=== PATIENT | male | born 1955 | race African-American/Black ===

== ENCOUNTER → 2022-08-31 | Outpatient (CLI) | payer OTHER ==
--- NOTE | 2022-08-31 11:35 | XR ---
EXAMINATION TYPE: XR chest 2V DATE OF EXAM: 08/31/2022 COMPARISON: NONE HISTORY: Shortness of breath TECHNIQUE: Frontal and lateral views of the chest are obtained. FINDINGS: Scattered senescent parenchymal changes noted. Hyperinflation compatible with COPD. No evidence for infiltrate. No evidence for atelectasis. Heart size is stable. Mediastinal structures are stable and grossly unremarkable. No evidence for hilar prominence. Degenerative changes dorsal spine. IMPRESSION: 1. No evidence for acute pulmonary disease.
== END | disposition home or self-care (01) ==
LOC: RADXRMAIN 10:46
PROVIDERS: ATTEND Internal Medicine
DX: R06.02 Shortness of breath (principal)
CPT/HCPCS: 71046

== ENCOUNTER → 2023-06-12 | Outpatient (CLI) | payer MEDICARE ==
--- NOTE | 2023-06-12 15:58 | XR ---
EXAMINATION TYPE: XR knee complete LT DATE OF EXAM: 06/12/2023 3:03 PM CLINICAL INDICATION:Male, 67 years old with history of M25.562 PAIN IN LEFT KNEE; [facility] COMPARISON: None. TECHNIQUE: XR knee complete LT; examined in Frontal, lateral and oblique projections. FINDINGS: No evidence of any acute osseous pathology, soft tissue swelling, or joint effusion is no kacey. Tricompartmental osteophyte formation involving the femoral condyles, tibial plateau and patella. Mi ld joint space narrowing. Remote injury to the patellar ligament with calcification present. IMPRESSION: 1. No acute osseous pathology. 2. Mild tricompartmental osteoarthritic changes.
== END | disposition home or self-care (01) ==
LOC: RADXRMAIN 14:28
PROVIDERS: ATTEND Internal Medicine
DX: M25.562 Pain in left knee (principal); M17.12 Unilateral primary osteoarthritis, left knee

== ENCOUNTER 2023-09-03 11:11 | Emergency (ER) | payer MEDICARE ==
--- NOTE | 2023-09-03 11:26 | ED ---
General Adult HPI - General Chief complaint: ENT Stated complaint: L shoulder/neck pain Time Seen by Provider: 09/03/23 11:24 Source: patient, RN notes reviewed Mode of arrival: ambulatory Limitations: no limitations - History of Present Illness Initial comments: 67-year-old male presenting to the ER with a chief, plaint of left-sided neck pain. He states has been going on for the past 2 weeks. He reports it is uncomfortable to lay on his left side and pain is exacerbated with movements of left arm. Denies any known injuries or traumas. He states the pain does radiate down his trapezius muscle. Denies any paresthesias or weakness. Denies any hearing difficulties. He states the pain comes and goes and states movement makes it worse. Has been taking [id number] Tylenol with minor relief. Denies any fevers, cough, congestion, chest pain, shortness of breath, nausea, vomiting, diaphoresis or dizziness. - Related Data Previous Rx's Medication Instructions Recorded Cyclobenzaprine [Flexeril] 5 mg PO TID PRN #15 tablet 09/03/23 Allergies Allergy/AdvReac Type Severity Reaction Status Date / Time No Known Allergies Allergy Verified 09/03/23 11:17 Review of Systems ROS Statement: Those systems with pertinent positive or pertinent negative responses have been documented in the HPI. ROS Other: All systems not noted in ROS Statement are negative. Past Medical History Past Medical History: Asthma, Diabetes Mellitus, Hypertension History of Any Multi-Drug Resistant Organisms: None Reported Past Surgical History: No Surgical Hx Reported Past Psychological History: No Psychological Hx Reported Smoking Status: Never smoker Past Alcohol Use History: Rare Past Drug Use History: None Reported General Exam Limitations: no limitations General appearance: alert, in no apparent distress Head exam: Present: atraumatic, normocephalic, normal inspection Eye exam: Present: normal appearance, PERRL, EOMI. Absent: scleral icterus, conjunctival injection, periorbital swelling ENT exam: Present: TM's normal bilaterally Neck exam: Present: normal inspection, tenderness (mild left trapezius), full ROM. Absent: meningismus, lymphadenopathy Respiratory exam: Present: normal lung sounds bilaterally. Absent: respiratory distress, wheezes, rales, rhonchi, stridor Cardiovascular Exam: Present: regular rate, normal rhythm, normal heart sounds. Absent: systolic murmur, diastolic murmur, rubs, gallop, clicks Skin exam: Present: warm, dry, intact, normal color. Absent: rash Course Vital Signs 09/03/23 09/03/23 11:15 12:29 Temperature 98.1 F 98 F Pulse Rate 75 68 Respiratory 18 18 Rate Blood Pressure 155/81 145/81 O2 Sat by Pulse 97 98 Oximetry Medical Decision Making - Medical Decision Making Was pt. sent in by a medical professional or institution (, DEVI[facility], INSTRUCTOR OF SOCIOLOGY, urgent care, hospital, or long-term...) When possible be specific @ -No Did you speak to anyone other than the patient for history (EMS, parent, family, police, friend...)? What history was obtained from this source @ -No Did you review nursing and triage notes (agree or disagree)? Why? @ -I reviewed and agree with nursing and triage notes Were old charts reviewed (outside hosp., previous admission, EMS record, old EKG, old radiological studies, urgent care reports/EKG's, long-term records)? Report findings @ -No old charts were reviewed Differential Diagnosis (chest pain, altered mental status, abdominal pain women, abdominal pain men, vaginal bleeding, weakness, fever, dyspnea, syncope, headache, dizziness, GI bleed, back pain, seizure, CVA, palpatations, mental health, musculoskeletal)? @ -Muscle spasm, fracture, dislocation this list is not meant to be all inclusive EKG interpreted by me (3pts min.). @ -None X-rays interpreted by me (1pt min.). @ -Cervical spine x-rays interpreted by me significant for mild to moderate spondylitic changes. Reversal of normal cervical lordosis with preserved alignment. CT interpreted by me (1pt min.). @ -None done U/S interpreted by me (1pt. min.). @ -None done What testing was considered but not performed or refused? (CT, X-rays, U/S, labs)? Why? @ -None What meds were considered but not given or refused? Why? @ -None Did you discuss the management of the patient with other professionals (professionals i.e. DEVIKA Piña, INSTRUCTOR OF SOCIOLOGY, lab, RT, psych nurse, mental health social worker, professor of oceanography, teacher, philanthropy officer, nurse case management)? Give summary @ -No Was smoking cessation discussed for >3mins.? @ -No Was critical care preformed (if so, how long)? @ -No Were there social determinants of health that impacted care today? How? (Homelessness, low income, unemployed, alcoholism, drug addiction, transport ation, low edu. Level, literacy, decrease access to med. care, longterm, rehab)? @ -No Was there de-escalation of care discussed even if they declined (Discuss DNR or withdrawal of care, Hospice)? DNR status @ -No What co-morbidities impacted this encounter? (DM, HTN, Smoking, COPD, CAD, Cancer, CVA, ARF, Chemo, Hep., AIDS, mental health diagnosis, sleep apnea, morbid obesity)? @ -None Was patient admitted / discharged? Hospital course, mention meds given and route, prescriptions, significant lab abnormalities, going to OR and other pertinent info. @ -Discharge. 67-year-old male presenting to the ER with a chief complaint of left ear/neck pain. History and physical exam completed. Vitals stable. Patient no signs of acute distress and nontoxic-appearing. Tenderness to palpation of the left trapezius muscle. Pain exacerbated by range of motion of shoulder. Left upper extremity neurovascularly intact. X-rays obtained significant for loss of cervical lordosis correlate with muscle spams. Results discussed with patient, all questions answered. Flexeril prescribed. Strict return parameters discussed. Patient discharged in stable condition follow-up PCP. Patient verbally expressed understanding and agreement with care plan. Case discussed with ED attending, Dr. Vance. Undiagnosed new problem with uncertain prognosis? @ -No Drug Therapy requiring intensive monitoring for toxicity (Heparin, Nitro, Insulin, Cardizem)? @ -No Were any procedures done? @ -No Diagnosis/symptom? @ -Musculoskeletal pain Acute, or Chronic, or Acute on Chronic? @ -Acute Uncomplicated (without systemic symptoms) or Complicated (systemic symptoms)? @ -Uncomplicated Side effects of treatment? @ -No Exacerbation, Progression, or Severe Exacerbation? @ -No Poses a threat to life or bodily function? How? (Chest pain, [place], [place], pneumonia, PE, COPD, DKA, ARF, appy, cholecystitis, CVA, Diverticulitis, Homicidal, Suicidal, threat to staff... and all critical care pts) @ -No - Radiology Data Radiology results: report reviewed, image reviewed Disposition Clinical Impression: Musculoskeletal pain Disposition: HOME SELF-CARE Condition: Stable Instructions (If sedation given, give patient instructions): Musculoskeletal Pain (ED) Additional Instructions: Follow-up with PCP if symptoms persist. Return to the ER for new or worsening concerns. Prescriptions: Cyclobenzaprine [Flexeril] 5 mg PO TID PRN #15 tablet PRN Reason: Muscle Spasm Is patient prescribed a controlled substance at d/c from ED?: No Referrals: Corrie Cosby MD [Primary Care Provider] - 1-2 days Time of Disposition: 12:16
[2023-09-03 11:43] VITALS: RESP 18
--- NOTE | 2023-09-03 11:56 | XR ---
EXAMINATION TYPE: XR cervical spine comp DATE OF EXAM: 09/03/2023 COMPARISON: None HISTORY: 67-year-old male with left-sided neck pain TECHNIQUE: 5 views FINDINGS: Normal odontoid view. Scattered mild facet and uncovertebral joint arthropathy is present throughout. This results in mild to moderate bony neuroforaminal narrowing on the left at C4-C5 and mild on the right at C4-C5 and C5-C6. There is mild to moderate degenerative disc disease and endplate spondylosi s particularly at C4-C5 and mild at other levels in the mid and lower cervical spine. Alignment is ma intained, there is straightening of the normal cervical lordosis. No predental space widening or prev ertebral soft tissue swelling. IMPRESSION: Mild to moderate spondylitic change, especially C4-C6 levels. Reversal of the normal cervical lordosi s with preserved alignment. Mild to moderate bony neural foraminal narrowing on the left at C4-C5. Mi ld on the right.
[2023-09-03 13:10] VITALS: BP 145/81; PULSE 68; TEMP 98
== END 2023-09-03 12:31 | disposition home or self-care (01) ==
LOC: EC 11:11
DX: M79.18 Myalgia, other site (principal)
CPT/HCPCS: 72050; 99283

== ENCOUNTER → 2024-03-12 | Outpatient (CLI) | payer MEDICARE ==
--- NOTE | 2024-03-12 13:34 | XR ---
EXAMINATION TYPE: XR knee 4V LT DATE OF EXAM: 03/12/2024 12:49 PM COMPARISON: 06/12/2023 CLINICAL INDICATION: Male, 68 years old with history of M25.562 PAIN IN LEFT KNEE M54.59 OTHER LOW M5 4.2; [facility] TECHNIQUE: XR knee 4V LT views submitted.. FINDINGS: No evidence of any acute osseous pathology, soft tissue swelling, or joint effusion is no kacey. Tricompartmental osteophyte formation involving the femoral condyles, tibial plateau and patella . Mild joint space narrowing. Remote injury to the patellar ligament with calcification present. IMPRESSION: 1. No acute osseous pathology. 2. Mild tricompartmental osteoarthritic changes. [facility], , 03/12/2024 1:32 PM
--- NOTE | 2024-03-12 13:36 | XR ---
EXAMINATION TYPE: XR lumbar spine 2 or 3V DATE OF EXAM: 03/12/2024 12:49 PM COMPARISON: None CLINICAL INDICATION: Male, 68 years old with history of M25.562 PAIN IN LEFT KNEE M54.59 OTHER LOW M5 4.2; [facility] TECHNIQUE: XR lumbar spine 2 or 3V - Frontal, lateral and coned in L5-S1 lateral views of the spine. FINDINGS: No evidence of any acute osseous pathology. No evidence of loss of vertebral body height i s seen. There is normal alignment of the lumbar vertebral bodies. Scattered disc space narrowing. Mul tilevel marginal osteophyte formation throughout the visualized spine. There is facet joint arthropat hy throughout the spine. Scattered at least mild neural foraminal stenosis. IMPRESSION: 1. No acute fracture. 2. Mild multilevel disc degeneration. [facility], , 03/12/2024 1:34 PM
--- NOTE | 2024-03-12 13:37 | XR ---
EXAMINATION TYPE: XR cervical spine limited DATE OF EXAM: 03/12/2024 12:49 PM COMPARISON: 09/03/2023 CLINICAL INDICATION: Male, 68 years old with history of M25.562 PAIN IN LEFT KNEE M54.59 OTHER LOW M5 4.2; [facility] TECHNIQUE: The cervical spine was imaged in frontal, lateral, and odontoid. FINDINGS: The osseous structures show normal alignment without evidence of an acute fracture. There are osteoph ytes noted throughout the cervical spine on the anterior and lateral aspects of the vertebral bodies. The intervertebral disk spaces are narrowed at multiple levels Pedicles are intact. Soft tissues ar e within normal limits. The odontoid appears intact. IMPRESSION: 1. No fracture or dislocation. 2. Mild degenerative disc disease changes of the cervical spine. [facility], , 03/12/2024 1:35 PM
== END | disposition home or self-care (01) ==
LOC: RADXRMAIN 12:21
DX: M51.360 Other intervertebral disc degeneration, lumbar region with discogenic back pain only (principal); M17.12 Unilateral primary osteoarthritis, left knee; M50.30 Other cervical disc degeneration, unspecified cervical region
CPT/HCPCS: 72040; 72100